=== PATIENT | male | born 1945 | race Caucasian/White ===

== ENCOUNTER 2025-07-28 05:19 | Observation (INO) ==
--- NOTE | 2025-06-18 10:17 | PAT Medication Instructions ---
Medication Instructions Date of Service June 18, 2025 Home Medications allopurinol 300 mg tablet 300 mg PO QAM atorvastatin 20 mg tablet 20 mg PO HS duloxetine 60 mg capsule,delayed release 60 mg PO QAM irbesartan 300 mg tablet 300 mg PO QAM pioglitazone 30 mg tablet (Actos) 30 mg PO QAM DO NOT take the morning of surgery irbesartan 300 mg tablet 300 mg PO QAM pioglitazone 30 mg tablet (Actos) 30 mg PO QAM Take morning of surgery With a small sip of water, OTHERWISE NOTHING TO EAT OR DRINK AFTER MIDNIGHT: allopurinol 300 mg tablet 300 mg PO QAM duloxetine 60 mg capsule,delayed release 60 mg PO QAM Take evening before surgery atorvastatin 20 mg tablet 20 mg PO HS Other Notes If you have any questions please call us at [phone] or [phone] or [phone] or [phone]
--- NOTE | 2025-06-25 08:19 | Anesthesiology Consultation ---
Date of Service June 25, 2025 Assessment & Plan (1) Encounter for pre-operative examination: - to assigned anesthesiologist discretion if BMP needs updated DOS-fluid orders to assigned anesthesiologist. - medical clearance 06/25/25: "...yes patient is medically optimized for surgery...had labs, EKG and chest xray done...medically cleared for surgery. CXR normal. EKG NSR with nonspecific T Wave abnormality. Labs reviewed..." - Outpatient joint assessment: Patient is currently scheduled for inpatient pathway. If re-evaluated and patient/surgeon requests outpatient pathway, patient is not a recommended candidate for outpatient joint program. Chart Review Chart Review: Acceptable Risk for Surgery and Patient seen in Pre Admission Testing Teaching & Discussion Pre-Anesthesia Teaching/Discussion Notes: Instructed NPO after midnight before surgery, except medications with 15 cc of water. Medication instructions provided according to the PAT guidelines. History Surgery Operation Date: 07/28/25 07:00 Proposed Procedures p Right Total Knee Arthroplasty - Lalo Carvalho MD Height/Weight Height: 5 ft 11 in Weight: 103.7 kg Allergies Allergy/AdvReac Type Severity Reaction Status Date / Time No Known Allergies Allergy Verified 06/18/25 09:35 Medications Home Medications Medication Instructions Recorded Confirmed Last Taken allopurinol 300 mg tablet 300 mg PO QAM 06/18/25 06/18/25 Unknown atorvastatin 20 mg tablet 20 mg PO HS 06/18/25 06/18/25 Unknown duloxetine 60 mg capsule,delayed 60 mg PO QAM 06/18/25 06/18/25 Unknown release irbesartan 300 mg tablet 300 mg PO QAM 06/18/25 06/18/25 Unknown pioglitazone 30 mg tablet (Actos) 30 mg PO QAM 06/18/25 06/18/25 Unknown Past Medical History Medical History (Updated 06/25/25 @ 13:34 by Dayna Avila PA-C) History of gout last flare 9-10 months or longer ago as per patients Hypertension controlled, stable per pt Prediabetes on oral medication Sleep apnea CPAP-compliant Patient denies h/o stroke, seizures, heart attack, heart failure, blood clots/DVTs or blood transfusions. Exercise / Class Metabolic Activity II 4-5 Yardwork/Stairs/Walk up hill (denies chest discomfort or shortness of breath with one flight of stairs) Past Surgical History Surgical History (Updated 06/25/25 @ 10:27 by Dayna Avila PA-C) History of arthroplasty of left knee History of colonoscopy History of hand surgery right History of tonsillectomy Past Anesthesia History No Hx of Anesthesia Complications and No Family Hx of Anesthesia Complications History of PONV No Hx of PONV and Hx of Motion Sickness Social History Smoking Status: Never smoker Do You Dip or Chew Tobacco: No Hx Alcohol Use: Yes alcohol intake frequency: a few times a month Hx Substance Use: No substance use type: does not use Review of Systems Patient denies chest pain, shortness of breath, dyspnea on exertion, reflux, fever, chills, cough, wheezing, or palpitations. Physical Exam Vital Signs Vitals BP 117/73 P 70 TEMP 97.6 SP02 99% on RA RESP 18 Physical Patient resting comfortably in chair in no acute distress, alert and oriented, responding appropriately throughout visit Full cervical extension range of motion without pain TMD 3.5 finger breadths Mallampati Score 2 Dentition: several crowns, denies chipped or loose teeth, caps, implants or bridges Lungs: normal respiratory effort. Good air movement, clear throughout to auscultation, no adventitious breath sounds Cardiac: regular rate and rhythm, no murmurs noted Carotid arteries: negative bruit bilat Lab Results Anesthesia Preop Results Results Anesthesia Widget: WBC 5.31 K/ul (4.8-10.8) 06/25/25 Hgb 11.5 g/dl (14.0-18.0) L 06/25/25 Hct 34.9 % (42.0-52.0) L 06/25/25 Plt 202 K/uL (130-400) 06/25/25 Na 138 mmol/L (136-145) 06/25/25 K 5.3 mmol/L (3.5-5.1) H 06/25/25 Cl 111 mmol/L (98-107) H 06/25/25 CO2 22 mmol/L (21-32) 06/25/25 BUN 36 mg/dl (6-23) H 06/25/25 Creat 1.72 mg/dl (0.6-1.4) H 06/25/25 Glucose Level 83 mg/dl (70-99(Fasting)) 06/25/25 PT 11.1 Seconds (9.0-12.0) 06/25/25 PTT 33 Seconds (21-31) H 06/25/25 INR 1.0 (0.9-1.1) 06/25/25 HA1c 4.7 % (4.5-5.6) 06/25/25 Urine Color Yellow 06/25/25 Urine Appearance Clear (Clear) 06/25/25 Urine pH 5.0 (4.5-7.5) 06/25/25 Urine Specific [place] 1.015 (1.000-1.030) 06/25/25 Urine Protein Negative (Negative) 06/25/25 Urine Glucose (UA) Negative (Negative) 06/25/25 Urine Ketones Negative (Negative) 06/25/25 Urine Blood Negative (Negative) 06/25/25 Urine Nitrite Negative (Negative) 06/25/25 Urine Bilirubin Negative (Negative) 06/25/25 Urine Urobilinogen Negative (Negative) 06/25/25 Urine Leukocyte Esterase Negative (Negative) 06/25/25 Blood Type O Positive 06/25/25 Antibody Screen NEGATIVE 06/25/25 Testing Electrocardiogram Date: 06/25/25 NSR, rate 70 bpm Nonspecific T wave abnormality Chest X-Ray Date: 06/25/25 No acute findings.
--- NOTE | 2025-07-28 05:21 | History & Physical Bridge Note ---
Date of Service July 28, 2025 History & Physical Bridge Note I have examined the patient, reviewed the History & Physical and in the interval since the performance of the History & Physical I have noted the following changes of clinical significance: consent and site verified. emphasized risks such as arthrofibrosis,DVT/PE and infection.no changes noted
[2025-07-28] MEDS: LR 60ML/HR IV SCH (05:58)
[2025-07-28] MEDS ORDERED: ROPIVACAINE 0.5% 5 MG/ML 30 ML VIAL ONE (06:34)
[2025-07-28] MEDS ORDERED: BUPIVACAINE 0.5 % 5 MG/1 ML PF 10ML VIAL ONE (06:34)
[2025-07-28] MEDS ORDERED: MIDAZOLAM HCL 1 MG/ML 2ML VIAL ONE (06:37)
[2025-07-28] MEDS ORDERED: PROPOFOL IV EMULSION 10 MG/ML 20 ML VIAL IV ONE ×2 (06:39→08:13)
[2025-07-28] MEDS: TRANEXAMIC ACID 1,000 MG **IV Pre-op IV SCH (06:45)
[2025-07-28] MEDS ORDERED: GLYCOPYRROLATE 0.2 MG/ML VIAL ONE (07:11)
[2025-07-28] MEDS ORDERED: ePHEDrine sulfate 50 MG/5 ML SYR ONE (07:11)
[2025-07-28] MEDS ORDERED: PHENYLEPHRINE 100MCG/ML 5ML SYR ONE (07:11)
[2025-07-28] MEDS: ORTHO JOINT ANESTHETIC ONE (07:30)
[2025-07-28] MEDS ORDERED: PHENYLEPHRINE HCL 10 MG/ML VIAL ONE (07:35)
[2025-07-28] MEDS: ROPIV 0.5% 246mg, Ketorolac 30mg, EPINEPHrine 0.5mg in NSS INFIL SCH (08:06)
--- NOTE | 2025-07-28 08:32 | Post Operative Brief Note ---
Immediate Post Op Note Date of Surgery July 28, 2025 Pre & Post Diagnosis Operation Date: 07/28/25 07:00 Pre-Op Diagnosis: Right Knee End-Stage Degenerative Joint Disease Post-Op Diagnosis: Right Knee End-Stage Degenerative Joint Disease I identified the patient and participated in the time-out.: Yes Procedure Operation Date: 07/28/25 07:00 Actual Procedures p cemented right Total Knee Arthroplasty(Right) - Lalo Carvalho MD Surgeon Lalo Carvalho MD Carpenter Assistant [facility] no resident or fellow available Estimated Blood Loss 20 Findings Consistent with Post-Op Diagnosis 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
--- NOTE | 2025-07-28 08:35 | Operative Report ---
Post Operative Report Pre & Post Diagnosis Operation Date: 07/28/25 07:00 Pre-Op Diagnosis: Right Knee End-Stage Degenerative Joint Disease Post-Op Diagnosis: Right Knee End-Stage Degenerative Joint Disease I identified the patient and participated in the time-out.: Yes Procedure Operation Date: 07/28/25 07:00 Actual Procedures p Right Total Knee Arthroplasty(Right) - Lalo Carvalho MD Surgeon Lalo Carvalho MD Laundry Housekeeper Jaqui no resident or fellow available Estimated Blood Loss 20 Findings Consistent with Post-Op Diagnosis Severe medial disease flexion varus deformity grade 3 patellofemoral joint Fluids 900 cc Specimens Bone pathology Drains None Complications None Indications Severe pain failed conservative management Description of Procedure After patient was appropriate notified site verified consent verified antibiotics has been given the right lower extremity was prepped and draped in usual routine fashion. There was a significant flexion varus deformity of about 10 degrees and 8 degrees respectively. Tourniquet was inflated to 275 mmHg after exsanguination limb and overexert manage for total of 50 minutes. Please verify that he received his preoperative antibiotic and his TXA prior to inflating the tourniquet. Midline exposure was utilized parapatellar arthrotomy performed synovectomy completed osteophytes resected distal femur entered cruciates resected tibia subluxated menisci resected. Distal femur resected 12 mm proximal tibia 4 mm. Extension gap was excellent. Both were sized to a 6 appropriate cutting block applied to the distal femur and anterior posterior, and chamfer cuts made flexion gap was checked and was excellent. Box cut was then made in the size 6 femur fit well. Lug holes were then made. Tibia was subluxated in the size 6 broach and reamed. Trial reduction with a 5 mm 6 mm spacer revealed a 5 mm give a little bit more extension. The patella was then everted it was roughly 26 mm it was resected roughly 10 to 11 mm and a 41 button seated to track well. Knee was then injected with Ortho mix and then irrigated with Pulsavac soaked in Betadine and after 3 minutes the permanent cemented into position tibia femur patella and then order of 12 minutes of tourniquet was deflated minor bleeding points controlled electrocautery did receive an additional dose of TXA just prior to leaving the tourniquet down. Minimal bleeding was encountered total blood loss was roughly 20 cc. After 14 minutes the spacer was removed the knee was irrigated no cement removal was required and the permanent liner seated knee closed in flexion about 40 degrees with #2 Vicryl 2-0 Vicryl and stainless steel clips appropriate dressing applied the patient transferred recovery in satisfactory addition he tolerated the procedure well. EBL 20 cc crystalloid 900 cc bone pathology pending x-ray pending. Summary of implants size 6 femur size 6 tibia 5 mm thick spacer posterior cruciate substituting 41 patella 2 bags [place] G cement ATT UNE DePuy Synthes total knee replacement. I attest to the content of the Intraoperative Record and any orders documented therein. Any exceptions are noted below.
--- NOTE | 2025-07-28 08:36 | Orthopedic Progress Note ---
Date of Service July 28, 2025 Orthopedic Progress Note Underwent right cemented total knee replacement. Patient did well denies chest pain shortness of breath fever chills nausea vomiting headache. Vital signs are stable he is afebrile. Wound dressing clean dry and intact x-ray pending. Family contacted.
--- NOTE | 2025-07-28 08:37 | Discharge Summary ---
Date of Service July 29, 2025 Admission HPI Per Admitting Provider Osteoarthritis right knee flexion varus deformity underwent right total knee replacement cemented Principal Diagnosis Status post right total knee replacement for osteoarthritis right knee with flexion varus deformity osteoarthritis right knee Discharge Data Allergies Allergy/AdvReac Type Severity Reaction Status Date / Time No Known Allergies Allergy Verified 07/28/25 05:38 Vaccinations None Consultations None Procedures Performed Operation Date: 07/28/25 07:00 Actual Procedures p Right Total Knee Arthroplasty(Right) - Lalo Carvalho MD Ordered Studies 07/28/25 05:00 US - OR guided needle placemen Routine Hospital Course (1) Status post right knee replacement: Total Time Total Time Spent Total Time Spent (In Minutes): 5 Discharge Plan Discharge Items Patient Disposition: Home - Home Health Services Reason For Visit: Right Knee Degenerative Joint Disease Discharge Diagnosis: Status post right total knee replacement Condition on Discharge: Good Activity: Per Instructions section Lifting: Wait until after follow-up appointment Bathing: Keep incision dry Sexual Activity: Wait until after follow-up appointment Exercise/Sports: Wait until after follow-up appointment Driving/Machine Use: No driving until cleared by Dr. Carvalho Weightbearing: Full weightbearing Non-emergency contact: Surgeon Call non-emergency contact if: you have any medication questions, your pain is not controlled, your temperature is above 101, your wound has increased redness, your wound has increased drainage and your wound pain has increased Follow-up/Referrals: Antony Valenzuela, DO [Primary Care Provider] - Diet: Heart Healthy Addtl Attending Provider Instructions: New Medicine: * You will likely be taking one or more of these medications: 1. Percocet - Take, as directed, when you need it, every four to six hours to control your pain. 2. Iron Sulfate - Take 1x each day for the month after surgery to help you replace the blood lost during surgery. 3. Eliquis - Thins your blood to lessen the chance of forming a blood clot. * The most common side effects of pain medicine and iron are nausea and constipation. If nausea or constipation is too much of a problem or if you have any questions about your new medicines or doses, call [facility] at . We will try to help you manage these issues. "VERY IMPORTANT TO READ AND REVIEW" Blood Clots and Blood Thinning Medicine: * You are given Eliquis during the immediate post-operative period to lessen the risk of blood clots forming in your legs and/or lungs. It is usually given for six weeks after surgery. Pain: * The immediate post-operative period after knee replacement surgery is often quite painful. * You are given a prescription for pain medicine. You should take it, as directed, when you need it, especially before physical therapy and before going to bed. Pain that interferes with sleep is very common and can last several months. * You will likely need pain medicine for the first four to six weeks. It will not stop all of the pain. The pain will lessen and as you feel better, you may change to milder pain medicine such as Tylenol. * The most common side effects of pain medicine are nausea and constipation, so don't take more than you need. Physical Therapy: * You will have physical therapy two or three times each week for four to six weeks after your surgery in order to regain your knee range of motion and to retrain your knee to work properly. * It is just as important to make sure you are getting your knee perfectly straight as it is to regain your knee bend. * Taking a pain pill an hour before therapy can help you have a more productive and comfortable therapy session if needed. Home Exercise: * You were shown a series of exercises (heel props, heel slides, etc.) in the hospital. Do these exercises three to four times each day including the exercises you were shown in physical therapy. Walking: * Get up and walk several times each day. For the first four weeks, try not to stand or walk for more than one hour at a time. If you do stand or walk for more than one hour, you will not hurt anything, but your knee and leg will likely swell. * As you feel comfortable, you may change from the walker or crutches to a cane and then to independent walking. SELF CARE INSTRUCTIONS AFTER TOTAL KNEE REPLACEMENT A. You may need to continue a physical therapy program after discharge from the hospital. There are several options available to you. Your doctor will assist you in selecting the best one for you. 1. An out-patient facility 2 to 3 times a week for therapy or home therapy. 2. Continue working on all exercises taught to you in the hospital. Your goals should be to increase bending of your knee to 90 degrees and beyond and to fully straighten your knee. B. You may progress at your own pace from walking with a walker or crutches to a cane; then to no assistive devices. C. Make walking a part of your daily routine. Be up as much as comfortable with rest periods throughout the day. Rest with leg elevation is very important. Use the ice wrap frequently for the first 3-4 weeks. D. There are no restrictions on activities. You may ride in a car, shop, participate in supply chain director and all social activities. E. Wear the long elastic stockings (MARLON hose) 20 hours a day for six weeks a fter surgery. They can be removed several times a day for laundering and for a shower. F. Do not place a pillow behind your knee when resting. A pillow at your ankle is okay. G. You may return to previous diet. VERY IMPORTANT TO READ AND REVIEW A. Take Eliquis (blood thinning medication) as directed by your doctor. B. There are a few signs you need to watch for after you are home. Call [facility] if you notice any of the followin. Increased severe knee pain. Some pain is expected especially when you exercise. 2. Increased swelling in your leg or knee; pain or swelling of the calf muscle in either lower leg. 3. Any fluid drainage from the incision. 4. Shortness of breath or chest pain. C. Please call [facility] at if you have any co ncerns or questions about your operation or recovery. The doctor or his nurse will return your call promptly. D. You must take antibiotics before dental work, bladder, bowel or other surgery. Call the office to obtain a prescription at least 2 days prior to your appointment. * CALL IF INCREASED PAIN, REDNESS, DRAINAGE OR FEVER GREATER THAT 101. * Sutures should be removed 12-14 days after surgery unless you are on chronic steroids, then it will be 14-18 days after surgery. Call your doctor if: * Temperature above 101 degrees F. * Pain not relieved by pain medicine ordered. * Increased drainage or redness from incision. * Notify your doctor with any questions or concerns. MEDICATIONS: * Please take your prescriptions as instructed at your pre-op appointment and/or see medication discharge instructions listed above. * If concerns develop, call your physician's office at . SPECIAL CARE INSTRUCTIONS: * Ice/Elevate as instructed. * Keep dressing clean, dry, intact. * Your surgical extremity may be discolored due to prepping agents used on the skin. A bluish-green tint is a normal variant and should not cause alarm. Call your doctor at [phone] if: * Temperature above 101 degrees * Pain not relieved by pain medicine ordered * There is increased drainage or redness from any incision * You have any unanswered questions, problems or concerns. FOLLOW UP VISIT: * If not already scheduled, please call the office at to schedule a follow-up appointment. Use the knee immobilizer when out of bed today and tomorrow. It can be disc ontinued entirely on Saturday morning use your walker for ambulation keep the dressings clean and intact through the . They can be changed on Saturday if needed for soiling Stand-Alone Forms: [facility], Smoking Cessation Medications and DC Order Prescriptions: No Action atorvastatin 20 mg Tablet 20 mg PO HS allopurinol 300 mg Tablet 300 mg PO QAM pioglitazone [Actos] 30 mg Tablet 30 mg PO QAM irbesartan 300 mg Tablet 300 mg PO QAM duloxetine 60 mg Capsule,Delayed Release(Dr/Ec) 60 mg PO QAM Admission Data Admit Date/Time: 07/28/25 08:51 Attending Provider: Lalo Carvalho Admit Provider: Lalo Carvalho Primary Care Provider: Antony Valenzuela
--- NOTE | 2025-07-28 08:46 | Operative Report ---
Post Operative Report Pre & Post Diagnosis Operation Date: 07/28/25 07:00 Pre-Op Diagnosis: Right Knee End-Stage Degenerative Joint Disease Post-Op Diagnosis: Right Knee End-Stage Degenerative Joint Disease I identified the patient and participated in the time-out.: Yes Procedure Operation Date: 07/28/25 07:00 Actual Procedures p Right Total Knee Arthroplasty(Right) - Lalo Carvalho MD Surgeon ISMAEL Carvalho MD Sectional Belt Mold Assembler [facility] no resident or fellow available Estimated Blood Loss 20 Findings Consistent with Post-Op Diagnosis see operative report Specimens see operative report Drains none Complications none Disposition Accompanied Patient To Recovery: Yes Indications This 80 year old male presented to the office complaints of persisting right knee pain. He had tried conservative care measures without improvement. He elected to proceed with surgical invention after being educated about potential risks and outcomes. Preoperative imaging was obtained. Description of Procedure The patient was administered a spinal anesthetic and then taken to the operating room where he was given sedation. He was prepped and draped in the usual sterile fashion. Please see Dr. Carvalho's operative report for specifics of the procedure. I was present for the entire case from initial patient positioning through final closure. Assistance was provided in tissue traction, hemostasis, trial implant placement, final implant placement, and final wound closure. The patient was taken to the recovery room in satisfactory condition. I attest to the content of the Intraoperative Record and any orders documented therein. Any exceptions are noted below.
--- NOTE | 2025-07-28 09:00 | XRay Report ---
XR knee RT 1 or 2V routine CLINICAL HISTORY: Status post right total knee replacement COMPARISON: 06/04/2025 FINDINGS: There are postsurgical changes of a total right knee arthroplasty and patellar resurfacing . There are overlying anterior skin anselmo. There is gas present within the soft tissues consistent with recent surgery. No complicating features are visualized. IMPRESSION: Postsurgical changes of a total right knee arthroplasty. ACT 112: Negative or not required by law. Electronically signed by: Marc Thomas M.D. 07/28/2025 8:58 AM
[2025-07-28] MEDS ORDERED: NALOXONE HCL 0.4 MG/1 ML VIAL/CARP IV PRN (10:33)
[2025-07-28] MEDS ORDERED: METOCLOPRAMIDE HCL INJ 5 MG/ML 2 ML VIAL IV PRN (10:33)
[2025-07-28] MEDS ORDERED: ALUMINUM/MAGNESIUM SUSP 30 ML UDC PO PRN (10:33)
[2025-07-28] MEDS ORDERED: HYDROmorphone INJ 0.5 MG/0.5 ML SYR IV PRN (10:33)
[2025-07-28] MEDS ORDERED: ONDANSETRON INJ 2 MG/ML 2 ML VIAL IV PRN (10:33)
[2025-07-28] MEDS ORDERED: VANCOMYCIN CONSULT ACTIVE PRN (10:33)
[2025-07-28] MEDS ORDERED: NON-FORMULARY MEDICATION (Pioglitazone [Actos] 30 mg Tablet) PO SCH (10:33)
[2025-07-28] MEDS ORDERED: diphenhydrAMINE 50 MG/ML VIAL IV PRN (10:33)
[2025-07-28] MEDS ORDERED: TAMSULOSIN HCL 0.4 MG CAP PO PRN (10:33)
[2025-07-28] MEDS ORDERED: MAGNESIUM HYDROXIDE SUSP 30 ML UDC PO PRN (10:43)
--- NOTE | 2025-07-28 11:06 | Anesthesiology Progress Note ---
Date of Service July 28, 2025 Anesthesia Post Procedure Vital Signs Vital Signs: Temp Pulse Resp BP Pulse Ox O2 Del Method O2 Flow Rate 07/28/25 11:00 84 20 129/70 95 Room Air 07/28/25 10:30 85 20 139/74 94 Room Air 07/28/25 10:15 88 16 149/72 H 95 Room Air 07/28/25 10:00 83 16 151/73 H 95 Room Air 07/28/25 09:45 85 18 149/73 H 95 Room Air 07/28/25 09:30 88 16 117/62 95 Room Air 07/28/25 09:20 85 20 117/63 96 Room Air 07/28/25 09:10 36.4 C L 86 18 111/58 L 96 Room Air 07/28/25 09:00 86 20 121/63 95 Room Air 07/28/25 08:50 86 18 103/52 L 95 Room Air 07/28/25 08:42 36.1 C L 87 16 98/44 L 96 Oxymask 6 07/28/25 05:40 36.6 C 78 20 171/87 H 97 Room Air Pain Intensity Right Knee: Pain Intensity: 4 Transfer of Care Handoff Completed per policy Notes Mental Status: alert / awake / arousable Patient Amnestic to Procedure: Yes Nausea / Vomiting: adequately controlled Pain: adequately controlled Airway Patency, RR, SpO2: stable & adequate BP & HR: stable & adequate Hydration State: stable & adequate Anesthetic Complications: no major complications apparent and Pt Satisfied with anesthetic care
--- NOTE | 2025-07-28 11:10 | Post Operative Brief Note ---
<Statement entered by Lalo Carvalho MD - 07/28/25 11:09> For some reason duplicate needed to be done because it did not print the first 1 thanks Immediate Post Op Note Date of Surgery July 28, 2025 Pre & Post Diagnosis Operation Date: 07/28/25 07:00 <No data on this case meets the specified criteria> Duplicate I identified the patient and participated in the time-out.: Yes Procedure Operation Date: 07/28/25 07:00 <No data on this case meets the specified criteria> Surgeon Lalo Carvalho MD Pharmacist [facility] no resident or fellow available Estimated Blood Loss 20 Findings Consistent with Post-Op Diagnosis
[2025-07-28] MEDS: VANCOMYCIN HCL 1,500 MG in SODIUM CHLORIDE 0.9% 500 ML IV ONE (11:42)
[2025-07-28] MEDS: SODIUM CHLORIDE 0.9% 1,000 ML IV SCH (11:43)
[2025-07-28] MEDS: LOSARTAN POTASSIUM 50 MG TAB PO SCH (12:03)
[2025-07-28] MEDS: MULTIVITAMIN TAB PO SCH (12:03)
[2025-07-28] MEDS: DOCUSATE SODIUM 100 MG CAP PO SCH (12:05)
[2025-07-28] MEDS: KETOROLAC TROMETHAMINE 15 MG/ML VIAL IV SCH (12:05)
[2025-07-28] MEDS: INSULIN ASPART PER UNIT CHARGE SC SCH (12:34)
--- NOTE | 2025-07-28 14:01 | Orthopedic Progress Note ---
Date of Service July 28, 2025 Assessment & Plan Admission and Anticipated Discharge Date Admission Date: July 28, 2025 Orthopedic Progress Note Postop check this afternoon doing well. He is doing his exercises. Can do a straight leg raise can flex easily to 80 degrees. Neurovascular check from the sciatic nerve is normal calves nontender. Postop x-rays look excellent. Assessment doing well plan is to continue care pathway ambulate with knee immobilizer on for 72 hours. DVT prophylaxis to be initiated tomorrow.
[2025-07-28] MEDS: ACETAMINOPHEN 500 MG TAB PO SCH (14:24)
[2025-07-28] MEDS: FERROUS GLUCONATE 324 MG TAB PO SCH (16:15)
[2025-07-28] MEDS: ASCORBIC ACID 500 MG TAB PO SCH (16:16)
[2025-07-28] MEDS: ATORVASTATIN 20 MG TAB PO SCH (20:17)
[2025-07-28] MEDS: SENNA 8.6 MG TAB PO SCH (20:17)
--- NOTE | 2025-07-29 06:08 | Orthopedic Progress Note ---
Date of Service July 29, 2025 Assessment & Plan Admission and Anticipated Discharge Date Admission Date: July 28, 2025 Orthopedic Progress Note Postop day #1 status post right total knee replacement. Patient resting comfortably in bed. Did not get great sleep but has not had much discomfort. Denies chest pain shortness of breath fever chills nausea vomiting or headache. Vital signs are stable he is afebrile. Neurovascular check femoral sciatic nerve is normal. Wound dressing clean dry and intact. Calves nontender. Assessment doing well status post right total knee replacement. Advance PT OT this morning. Discharge after that. Dressing changed this morning by PA. Initiate anticoagulation this morning. Follow-up in 2 weeks.
[2025-07-29] MEDS: dexAMETHasone 10 MG in SYRINGE 0 ML IV SCH (07:12)
[2025-07-29] MEDS: APIXABAN 2.5 MG TAB PO SCH (07:13)
[2025-07-29 07:17] VITALS: BP 136/76; RESP 15; TEMP 98.2; O2SAT 95
[2025-07-29 07:41] LABS: Hematocrit (blood only) 28.3 % (42.0-52.0); Hemoglobin 9.2 g/dl (14.0-18.0); Mean Corpuscular Hemoglobin 33.2 pg (25.0-34.0); Mean Corpuscular Volume 102.2 fL (80.0-100.0); Platelet Count 142 K/uL (130-400); RDW Standard Deviation 49.2 fL (36.4-46.3); Red Blood Count 2.77 M/uL (4.70-6.10); White Blood Count 5.58 K/ul (4.8-10.8)
[2025-07-29 07:56] LABS: Anion Gap 8.0 (3-11); Blood Urea Nitrogen 29.0 mg/dl (6-23); Calcium 9.3 mg/dl (8.6-10.3); Carbon Dioxide 22.0 mmol/L (21-32); Chloride 108.0 mmol/L (98-107); Creatinine Clr Calc Pharmacy 43.0 ml/min; Glucose 111.0 mg/dl (70-99(Fasting)); Potassium 4.4 mmol/L (3.5-5.1); Sodium 138.0 mmol/L (136-145)
--- NOTE | 2025-07-29 08:53 | Orthopedic Progress Note ---
Date of Service July 29, 2025 Assessment & Plan (1) Status post right knee replacement: Plan: The patient was educated regarding today's findings. Conservative care measures were discussed. His dressings were removed. A new pressure dressing was applied using gauze, Kerlix, and ABDs. Brady stocking was applied. He will leave this in place through the weekend. His dressings can be changed on Saturday by home health if needed for soiling. Follow-up with me in the office in 2 weeks as scheduled for staple removal. Prescriptions for Percocet 5/325 mg, and Eliquis 2.5 mg were sent to his pharmacy. His Eliquis was started this morning. He will continue it twice per day for 6 weeks for clot prevention. Continue with ice application and elevation for pain and swelling control. He will start home health tomorrow. Written discharge instructions were provided. Call the office with any other concerns. Admission and Anticipated Discharge Date Admission Date: July 28, 2025 Subjective This 80-year-old male is seen today in his room. He is 1 day status post right total knee arthroplasty. He states his pain is tolerable at this time. He is currently sitting in bed and has finished breakfast. He is waiting for therapy. He denies any chest pain, shortness of breath, nausea, vomiting, or abdominal pain. He would like to go home today. No additional complaints. Review of Systems Review of Systems: Unchanged from yesterday. Physical Exam Physical Exam: General: Well-developed, well-nourished, elderly male, in no acute distress. Laying in bed. Alert and oriented. Conversive. Skin: Warm and dry with good turgor. No rashes. Postsurgical dressings are in place on the right leg. Upon removal, there is scant dried blood on his most inner dressings. There is no active bleeding from the surgical site. Shaw are intact. Wound edges are well-approximated. Mild edema around the knee. No ecchymosis. Musculoskeletal: The patient has nearly full terminal extension. He is able to perform a straight leg raise. He is able to flex his knee to approximately 70 degrees when dangling over the side. There is tenderness with palpation over the proximal thigh, in the area of his tourniquet. Intact motor function to the ankle and toes. Neurologic: Gross sensation is intact across the right leg by soft touch. Peripheral pulses are 2+. Results & Data Vital Signs (Past 12 Hours) Vital Signs Temp Pulse Resp BP BP Pulse Ox O2 Del Method 07/29/25 07:11 36.8 C 70 15 136/76 95 Room Air 07/29/25 03:04 36.5 C 74 116/69 96 Room Air 07/28/25 22:46 36.5 C 71 18 110/65 97 Room Air Laboratory Results CBC obtained this morning shows a white count of 5.58. H&H of 9.2 and 28.3. Platelets 142,000. Sodium 138, potassium 4.4, CO2 22. BUN of 29 with creatinine 1.71. These are elevated but consistent with his preop laboratory work. Glucose is 114 today.
[2025-07-29 09:48] VITALS: PULSE 84
== END 2025-07-29 10:39 | disposition home health service (06) ==
LOC: PACUINP 05:19 → ASU 05:19 → 3E 11:22